=== PATIENT | female | born 1990 | race Caucasian/White ===

== ENCOUNTER → 2017-01-10 | Day surgery (SDC) | payer OTHER ==
--- NOTE | 2017-01-14 12:52 | PATH ---
Surgical Pathology Report Patient Name: GOVIND DOLL [facility]. Rec. #: [id number] /Age/Gender: 1990 (Age: 26) / F Account: [id number] Location: Taken: 01/10/2017 Received: 01/10/2017 Reported: 01/14/2017 Physicians: Livier Hernandez M.D. Specimen(s) Received RIGHT BREAST CORE BIOPSY 12N3 Clinical History Nonpalpable lesion Ultrasound findings: cystic lesion Final Diagnosis BREAST, RIGHT, 12:00, 3 CM FN, CORE BIOPSY: BENIGN BREAST TISSUE SHOWING FIBROADENOMATOID CHANGE. Electronically Signed Jayna Ramos M.D. Gross Description Received in formalin, labeled "right breast 12:00, 3 cmfn," are 4 mehta-yellow, cylindrical portions of fibroadipose tissue averaging 1.7 cm. in length and averaging 0.3 cm. in diameter. The specimen is submitted in toto in one cassette. Time to formalin fixation: < 1 minute Total formalin fixation time: Approximately 74 hours. 01/13/2017 [facility]01/13/2017
--- NOTE | 2017-01-14 13:19 | OP ---
DATE OF OPERATION: 01/13/2017 PREOPERATIVE DIAGNOSIS: Right breast mass. 12 o'clock, 3 cm from the nipple. POSTOPERATIVE DIAGNOSIS: Right breast mass. 12 o'clock, 3 cm from the nipple. PROCEDURE: Right ultrasound-guided core biopsy with clip placement. ANESTHESIA: Local. ATTENDING SURGEON: Livier Hernandez MD ESTIMATED BLOOD LOSS: Minimal. COMPLICATIONS: None. DESCRIPTION OF PROCEDURE: Patient was made aware of the risks and benefits of the procedure and consented. She was placed in the supine position. Under sterile conditions with 1% Lidocaine for local anesthesia, a small ronel was made in the skin. Using a 10-guage suction biopsy device with a lateral approach and ultrasound guidance, multiple cores were obtained and submitted to Pathology. Likewise, under ultrasound guidance, clip was placed into the biopsy region. Well tolerated by patient. Bleeding was controlled by manual compression. Steri-Strips and sterile bandages were applied. We will contact her with the results. Oziel [id number]
== END | disposition home or self-care (01) ==
LOC: FRADUS-SUR 15:03
PROVIDERS: ATTEND Surgery Surgical Oncology
PROC: 0HBT3ZX Excision of Right Breast, Percutaneous Approach, Diagnostic (ICD-10-PCS; principal; 2017-01-10)
DX: N63 Unspecified lump in breast (principal); N64.89 Other specified disorders of breast
CPT/HCPCS: 19083; 87899; 88305-TC; A4648